=== PATIENT | female | born 1995 | race American Indian/Alaskan Native ===

== ENCOUNTER 2020-05-01 02:24 | Emergency (ER) | payer MEDICAID ==
[2020-05-01] MEDS ORDERED: DIPHtheria,PERTUSSIS(ACELL),TETANUS VACCINE/PF 0.5 ML VIAL IM ONE (02:32)
[2020-05-01 02:46] VITALS: BP 140/75
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
== END 2020-05-01 05:31 | disposition home or self-care (01) ==
LOC: ED 02:24
DX: S61.411A Laceration without foreign body of right hand, initial encounter (principal); S81.011A Laceration without foreign body, right knee, initial encounter; S01.511A Laceration without foreign body of lip, initial encounter; S66.911A Strain of unspecified muscle, fascia and tendon at wrist and hand level, right hand, initial encounter; S86.911A Strain of unspecified muscle(s) and tendon(s) at lower leg level, right leg, initial encounter; J45.909 Unspecified asthma, uncomplicated; Z79.899 Other long term (current) drug therapy; Z98.890 Other specified postprocedural states; Y04.8XXA Assault by other bodily force, initial encounter; Y93.89 Activity, other specified; Y92.89 Other specified places as the place of occurrence of the external cause; Y99.8 Other external cause status
CPT/HCPCS: 70450; 72125; 90471; 90715; 96372

== ENCOUNTER 2020-05-10 22:26 | Emergency (ER) | payer MEDICAID ==
--- NOTE | 2020-05-10 22:37 | Emergency Department Report ---
Suture/Staple Removal - HPI Chief Complaint: Laceration/Recheck/Suture Stated Complaint: REMOVAL OF ITZ Time Seen by Provider: 05/10/20 22:34 When Sutures or [place] Placed: 5-7 Days Ago Wound Location: 3 itz to the left scalp no complications noted no discharge no tenderne ED Review of Systems ROS: Stated complaint: REMOVAL OF ITZ Other details as noted in HPI Comment: All other systems reviewed and negative ED Past Medical Hx - Past Medical History Previous Medical History?: Yes Hx Asthma: Yes Additional medical history: PCOS. Bharath's trait - Surgical History Past Surgical History?: Yes Additional Surgical History: tonsil. pylops removed from uterus - Social History Smoking Status: Never Smoker Substance Use Type: None - Medications Home Medications: Home Medications Medication Instructions Recorded Confirmed Last Taken Type Naproxen 500 mg PO Q12H PRN #12 tablet 05/01/20 Unknown Rx Suture Removal Exam - Exam General: Vital signs noted. No distress. Alert and acting appropriately. Wound: No Pathologic Erythema, No Tenderness, No Drainage, No Pus, No Wound Dehiscence Other Systems: All other systems reviewed and are unremarkable. ED Recheck MDM - Medical Decision Making 3 itz removed no complications procedure tolerated well patient was provided wound management information is Critical care attestation.: If time is entered above; I have spent that time in minutes in the direct care of this critically ill patient, excluding procedure time. ED Disposition Clinical Impression: Removal of itz Disposition: - TO HOME OR SELFCARE Is pt being admited?: No Does the pt Need Aspirin: No Condition: Stable Instructions: Incision Care, Adult Referrals: [facility] [Provider Group] - 3-5 Days
== END 2020-05-10 22:37 | disposition home or self-care (01) ==
LOC: ED 22:26
DX: S01.91XD Laceration without foreign body of unspecified part of head, subsequent encounter (principal); J45.909 Unspecified asthma, uncomplicated; Z98.890 Other specified postprocedural states; Z79.899 Other long term (current) drug therapy; X58.XXXD Exposure to other specified factors, subsequent encounter